=== PATIENT | male | born 1955 | race Two or more races ===

== ENCOUNTER 2024-04-09 11:34 | Outpatient (REF) | payer MEDICAID, SELFPAY ==
[2024-04-09 13:18] LABS: Erythrocyte Sedimentation Rate 7 MM/HR (0-15)
[2024-04-09 13:35] LABS: Vitamin B12 736 pg/mL (200-900)
--- OUTSIDE RECORDS SUMMARY | 2024-04-09 15:37 | XMS_ITS ---
Author Organization [facility] Address [address] [place] [address] [phone] Care Team Providers Care Anthropology Instructor Name Role Phone No, PCP Primary Care Provider Kevin Ratliff [phone] Encounters Encounter Location Date Provider Diagnosis [facility] [address] [place] [address] [id number] 10/12/2022 Kevin Hernandez Plan Of Treatment No Information Progress Notes * Evangelist WHALEY MDOB: 1955 (67 yo M)Acc No.[id number]:10/12/2022 Patient:?Phoenix Whaley :1955???Age:67 Y???Sex:Male Address:[address] [address] * true * Date:? Generated for aPolo monteiro/Chapin/eTransmitting on:?04/09/2024 03:37 PM EST
--- OUTSIDE RECORDS SUMMARY | 2024-04-09 15:37 | XMS_ITS | Clinical Summary ---
[facility] Address [address] [place] [address] Care Team Providers Care Payroll Administrative Assistant Name Role Phone Unavailable Primary Care Provider Unavailabl e Social History Tobacco Use Types Packs/Day Years Used Date Smoking Tobacco: Never Assessed Sex and Gender Information Value Date Recorded Sex Assigned at Not on file Gender Identity Not on file Sexual Orientation Not on file Plan of Treatment Health Maintenance Due Date Last Done Comments Zoster Vaccines (1 of 2) 2004 Pneumococcal Vaccine: 65+ Ye ars (1 of 1 - PCV) 07/11/2019 COVID-19 Vaccine ( - 2023-2 5 season) 2023 Influenza Vaccine (#1) 2023 Abdominal Aortic Aneurysm (A AA) Screen 02/04/2024 Cholesterol Screening (Lipid Panel) 02/04/2024 Colorectal Cancer Screening: Colonoscopy 02/04/2024 Depression Screening 02/04/2024 Falls Risk Assessment 02/04/2024 Hepatitis C Screening 02/04/2024 Social Influencers of Health Screening 02/04/2024 DTaP,Tdap,and Td Vaccines (2 - Td or Tdap) 08/04/2025 08/05/2015 RSV Immunization Patients 60 + Years Old (1 - 1-dose 75+ series) 2029 HIB Vaccines Aged Out No longer eligi ble based on patient's age to complete this topic HPV Vaccines Aged Out No longer eligi ble based on patient's age to complete this topic Hepatitis A Vaccines Aged Out No long er eligible based on patient's age to complete this topic Hepatitis B Vaccines Aged Out No long er eligible based on patient's age to complete this topic IPV Vaccines Aged Out No longer eligi ble based on patient's age to complete this topic MMR Vaccines Aged Out No longer eligi ble based on patient's age to complete this topic Meningococcal ACWY Vaccine Aged Out N o longer eligible based on patient's age to complete this topic RSV Immunization Patients Un brynn 20 months Aged Out No longer eligible b ased on patient's age to complete this topic Varicella Vaccines Aged Out No longer eligible based on patient's age to complete this topic
--- OUTSIDE RECORDS SUMMARY | 2024-04-09 15:37 | XMS_ITS ---
Author Organization [facility] Address [address] [place] [address] [phone] Care Team Providers Care Manager Food Safety Name Role Phone No, PCP Primary Care Provider Kevin Ratliff [phone] Encounters Encounter Location Date Provider Diagnosis [facility] [address] [place] [address] [phone] 10/12/2022 Kevin Hernandez Plan Of Treatment No Information Progress Notes * Evangelist WHALEY MDOB: 1955 (67 yo M)Acc No.[id number]:10/12/2022 Patient:?Phoenix Whaley :1955???Age:67 Y???Sex:Male Address:[address] [address] * true * Date:? Generated for Paolo monteiro/Chapin/eTransmitting on:?04/09/2024 03:37 PM EST
--- OUTSIDE RECORDS SUMMARY | 2024-04-09 15:38 | XMS_ITS ---
Author Organization [facility] Address [address] [place] [address] [phone] Care Team Providers Care Slab Conditioner Supervisor Name Role Phone No, PCP Primary Care Provider Kevin Ratliff [phone] Encounters Encounter Location Date Provider Diagnosis [facility] [address] [place] [address] [id number] 10/12/2022 Kevin Hernandez Plan Of Treatment No Information Progress Notes * Evangelist WHALEY MDOB: 1955 (67 yo M)Acc No.[id number]:10/12/2022 Patient:?Phoenix Whaley :1955???Age:67 Y???Sex:Male Address:[address] [address] * true * Date:? Generated for Paolo monteiro/Chapin/eTransmitting on:?04/09/2024 03:37 PM EST
--- OUTSIDE RECORDS SUMMARY | 2024-04-09 15:38 | XMS_ITS | Patient Health Record ---
Author Organization [facility] Address [address] [facility] [place] [address] Care Team Providers Care Ingot Car Operator Name Role Phone Sonja PADILLA, [place] Primary Care Provider Nancy Mcintosh Unavailable [phone] Allergies No Known Allergies Reason For Referral No Information Medications Medication SIG (Take, Route, Frequency, Duration) Notes Start Date End Date Status Cetirizine HCl 10 MG 1 tablet Orally Onc e a day Active Fluticasone Propionate nasal spray Active Irbesartan 300 MG 1 tablet Orally Once a day Active buPROPion HCl ER (XL) 150 MG 1 tablet in the morning Orally Once a day Active Cyclobenzaprine HCl 10 MG 1 tablet at be dtime Orally Once a day Active amLODIPine Besylate 10 MG 1 tablet Orall y Once a day Active buPROPion HCl ER (XL) 300 MG 1 tablet in the morning Orally Once a day Active Social History Tobacco Use: Social History Observation Description Date Details (start date - stop date) Former Smoker NA - NA Tobacco Use/Smoking Question Answer Notes Are you a: former smoker Alcohol Screen Question Answer Notes Did you have a drink containing alcohol in the p ast year? No Points 0 Interpretation Negative Tobacco use other than smoking: Question Answer Notes Are you an other tobacco user? No Problems Problem Type SNOMED Code ICD Code Onset Dates Problem Status W/U Status Risk Notes Problem Acquired hammer toe of right foot (9275654098626 105) Other hammer toe(s) (acquired), right foot (M20.41) Active confirmed Problem Acquired hammer toe of left foot (2845917894299 103) Other hammer toe(s) (acquired), left foot (M20.42) Active confirmed Plan Of Treatment Pending Test Test Name Order Date X ray : Foot, left 3V 10/10/2021 X ray : Foot, right 3V 10/03/2022 X ray : Foot, right 3V 10/10/2021 Insurance Providers Payer Name Payer Address Payer Phone Subscriber Number Group Number Insured Name Patient Relationship to Insured Coverage Start Date Coverage End Date [facility] [employer] Claims [address] [place] [phone] [id number] Evangelist Chamberlain Self - patient is the insured Medical (General) History Medical History History ICD Code Anxiety Back,Hip,and Knee pain Chicken pox Depression High blood pressure Joint implants/screws brain tumor Surgical History Surgery Date(Month/Year) knee surgery 80's back surgery, fusion 90's lap band 2014 Hospitalization History Reason Date(Month/Year)
--- OUTSIDE RECORDS SUMMARY | 2024-04-09 15:38 | XMS_ITS ---
Author Organization [facility] Address [address] [place] [address] Care Team Providers Care Math Interventionist Name Role Phone Sonja BLOWER ROOM ATTENDANT, [place] Primary Care Provider Unava ilNancy Sevilla [phone] REASON FOR VISIT Surgery Encounters Encounter Location Date Provider Diagnosis [facility] [address] [place] [address] 10/09/2022 Nancy Bedoya Plan Of Treatment No Information Progress Notes * Evangelist CHAMBERLAIN MDOB:1955 (67 yo M)Acc No.[id number]:10/09/2022 Patient:?Evangelist Chamberlain :1955???Age:67 Y???Sex:Male Address:[address] [place] [address] Vázquez [place] Váz[place], [address] * true * Date:? Generated for Tinoi cayetano/Chapin/eTransmitting on:?04/09/2024 03:37 PM EST
--- OUTSIDE RECORDS SUMMARY | 2024-04-09 15:38 | XMS_ITS ---
Author Organization [facility] Address [address] [place] [address] Care Team Providers Care Dry Kiln Operator Helper Name Role Phone Odette Reardon PA-C Primary Care Provider [id number] SMBP Program Status:Enrolled (Active) Start date:09/16/2023 Enrollment date:09/16/2023 Case Team Name Relationship Phone Joslyn Lofton LPN (Responsible Staff) [phone] Continued Care and Services Coordination
--- OUTSIDE RECORDS SUMMARY | 2024-04-09 15:38 | XMS_ITS | Clinical Summary ---
Author Organization [facility] Address [address] [place] [address] Care Team Providers Care Errand Runner Name Role Phone Odette Reardon PA-C Primary Care Provider Source Comments PLEASE NOTE, if this patient is a minor, it may be UNLAWFUL to discuss sensitive information that is contained in these records (such as FAMILY PLANNING, MENTAL HEALTH or SUBSTANCE ABUSE) with the minor patient's parent or other person without the patient's specific authorization.[facility] Allergies No known active allergies Medications sildenafiL (VIAGRA) 100 mg tablet TAKE ONE TABLET BY MOUTH ONE HOUR BEFORE SEXUAL ACTIVITY 2 Active cabergoline (DOSTINEX) 0.5 mg tablet 3 Active naproxen (NAPROSYN) 500 mg tabletIndication s:Chronic midline low back pain without sciatica Take 1 Tablet by mouth 2 (two) times daily with a meal 60 Tablet 3 Active montelukast (SINGULAIR) 10 mg tabletIndication s:Seasonal allergies Take 1 Tablet by mouth every evening Take 10 mg by mouth every evening 90 Tablet 1 4 Active fluticasone (FLONASE) 50 mcg/actuation nasal sprayIndications :Seasonal allergies Place 1 Mindoro in both nostrils once daily 16 g 2 4 Active cetirizine (ZYRTEC) 10 mg tabletIndication s:Anxiety Take 1 Tablet by mouth daily daily 90 Tablet 4 Active acetaminophen (TYLENOL) 500 mg tabletIndication s:Chronic midline low back pain without sciatica Take 2 Tablets by mouth every 6 (six) hours as needed for pain 120 Tablet 4 Active irbesartan (AVAPRO) 300 mg tabletIndication s:Hypertension, unspecified type Take 1 Tablet by mouth once daily 90 Tablet 1 4 Active atorvastatin (LIPITOR) 10 mg tabletIndication s:Hypertension, unspecified type,Elevated LDL cholesterol level Take 1 Tablet by mouth nightly at bedtime 90 Tablet 1 4 Active amLODIPine (NORVASC) 10 mg tabletIndication s:Hypertension, unspecified type Take 1 Tablet by mouth daily for 180 days 90 Tablet 1 4 Active buPROPion HCL (WELLBUTRIN XL) 300 mg 24 hr tabletIndication s:Hypertension, unspecified type,Anxiety Take 1 Tablet by mouth every morning 90 Tablet 4 Active Active Problems Problem Noted Date Diagnosed Date 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 Prolactinoma ([facility]) 04/22/2023 Elevated LDL cholesterol level 02/27/2023 Hypertension 02/14/2022 Prediabetes 02/14/2022 Erectile dysfunction 02/14/2022 Anxiety 02/14/2022 Immunizations Name Administration Dates Next Due Flu, High Dose, 65y+, Fluzon e High Dose 02/13/2023,12/31/2020 Flu, Preservative Free 12/05/2015 INFLUENZA, SEASONAL, INJECTABLE 01/09/20,03/14/2018,01/17/2017,01/08,01/29/2016,06/09/2015,03/24/2013 ,03/13/2012,01/18/2011,01/31/2010,12/10 Influenza, Whole 10/21/2018 PNEUMOCOCCAL POLYSACCHARIDE PPV23 03/29/2017 TDAP 04/06/2011 ZOSTER VACCINE, RECOMBINANT (SHINGRIX) 3,07/04/2017 Family History Medical History Relation Name Comments Drug Abuse Brother No Known Problems Father Heart attack Mother respiratory shock Sister Relation Name Status Comments Brother Father Mother Sister Social History Tobacco Use Types Packs/Day Years Used Date Smoking Tobacco: Never Smokeless Tobacco: Never Tobacco Cessation:Counseling Given: Yes Alcohol Use Standard Drinks/Week Comments Never 0 (1 standard drink = 0.6 oz pur e alcohol) Social Connections Answer Date Recorded Connectedness 0 11/14/2023 Financial Resource Strain Answer Date R ecorded Financial Resource Strain 0 2022 Stress Answer Date Recorded Stress 0 02/14/2022 Physical Activity Answer Date Recorded Physical Activity 0 02/14/2022 Food Insecurity Answer Date Recorded Food 0 01/25/2023 Transportation Needs Answer Date Record ed Transportation 0 01/25/2023 Housing Stability Answer Date Recorded Housing 0 01/25/2023 Safety and Environment Answer Date Theodore rded Safety 0 02/14/2022 Utilities Answer Date Recorded Utilities 0 01/25/2023 Employment Answer Date Recorded Employment 0 02/14/2022 Sex and Gender Information Value Date Recorded Sex Assigned at Male 02/14/2022 10:03 AM PST Legal Sex Male 8:38 AM PDT Gender Identity Male 02/14/2022 10:03 AM PST Sexual Orientation Straight 02/14/2022 10 :03 AM PST Last Filed Vital Signs Vital Sign Reading Time Taken Comments Blood Pressure 142/80 10/04/2023 9:06 AM EDT Pulse 94 10/04/2023 9:06 AM EDT Temperature 36.6 ??C (97.9 ??F) 08/23/2023 9:23 AM ED T Respiratory Rate 16 08/23/2023 9:23 AM EDT Oxygen Saturation 96% 01/25/2023 9:47 AM EST Inhaled Oxygen Concentration - - Weight 105.2 kg (232 lb) 08/23/2023 9:23 AM EDT Height 170.2 cm (5' 7 ) 08/23/2023 9:23 AM EDT Body Mass Index 36.34 08/23/2023 9:23 AM EDT Plan of Treatment Health Maintenance Due Date Last Done Comments Medicare Annual Wellness Visit [address] Colonography 07/11/1999 Colonoscopy 07/11/1999 Colorectal Cancer Screening 07/11/1999 FIT/gFOBT 07/11/1999 Fecal DNA 07/11/1999 Flexible Sigmoidoscopy 07/11/1999 Imm-Pneumococcal 65+ (2 of 2 - PCV) 03/29/2018 03/29/2017 Imm-DTaP/Tdap/Td (2 - Td or Tdap) 04/06/2021 012 Mia-SXXUM-24 ( season) 2023 10/29/2021, 08/05/2020, 07/08/2020 Imm-Influenza (#1) 2023 02/13/2023, 1 , 12/31/2020, Additional history exists Lipid Screening 01/26/2024 01/25/2023 Alcohol and Drug Screen 03/11/2024 04/22/19 24, 01/25/2023, 02/14/2022 Depression Annual Screen 03/11/2024 04/22/2023 Diabetes Screening 08/22/2024 08/23/2023, 0 08/23/2023, 01/25/2023, Additional history exists Falls Prevention 08/22/2024 08/23/2023 Tobacco Screening 09/14/2024 09/15/2023 Hepatitis C Screening Completed 01/25/2023 Imm-Zoster, Recombinant Completed 02/13/2023, 07/04 Goals Goal Patient Goal Type Associated Problems Recent Progress Patient-Stated? Author Blood Pressure < 130/80 Blood Pressure 142/80( 024 9:06 AM EDT) No Joslyn Lofton LPN Hypertension: Decrease sodium intake General No Joslyn Lofton LPN Procedures Procedure Name Priority Date/Time Associated Diagnosis Comments COMPREHENSIVE METABOLIC PANEL Routine 08/23/2023 9:56 AM EDT Hypertension, unspecified type Prediabetes HEPATITIS C AB W/RFLX HCV RNA, QT, RT PCR Routine 01/25/2023 10:22 AM EST Hypertension, unspecified type LIPID PANEL Routine 01/25/2023 10:22 AM EST from Last 3 Months or Most Recently Relevant to Health Maintenance Results * COMPREHENSIVE METABOLIC PANEL (08/23/2023 9:56 AM EDT) GLUCOSE 91 65 - 139 mg/dL [facility] Comment: ?Non-fasting reference interval UREA NITROGEN (BUN) 10 7 - 25 mg/dL [facility] CREATININE (blood) 1.00 0.70 - 1.35 mg/dL [facility] EGFR 81 > OR = 60 mL/min/1. 73m2 [facility] BUN/CREATININE RATIO SEE NOTE: [facility] Comment: ?? Not Reported: BUN and Creatinine are within ?? reference range. ? SODIUM 138 135 - 146 mmol/L [facility] POTASSIUM 4.5 3.5 - 5.3 mmol/L [facility] [place] [employer] CHLORIDE 101 98 - 110 mmol/L [facility] CARBON DIOXIDE 28 20 - 32 mmol/L [facility] CALCIUM 9.4 8.6 - 10.3 mg/dL [facility] PROTEIN, TOTAL 7.2 6.1 - 8.1 g/dL [facility] ALBUMIN 4.1 3.6 - 5.1 g/dL [facility] [place] [employer] GLOBULIN 3.1 1.9 - 3.7 g/dL (calc) [facility] ALBUMIN/GLOBULI N RATIO 1.3 1.0 - 2.5 (calc) [facility] [place] [employer] BILIRUBIN, TOTAL 0.5 0.2 - 1.2 mg/dL [facility] ALKALINE PHOSPHATASE 99 35 - 144 U/L [facility] AST 21 10 - 35 U/L [facility] ALT 21 9 - 46 U/L [facility] Blood Blood / Unknown 08/23/2023 9 :56 AM EDT 08/23/2023 9:56 AM EDT Narrative [employer] [facility] - 08/24/2023 8:52 AM EDT FASTING:NO Odette Reardon PA-C LAB - BLOOD DRAW Edited Resu lt - Final [facility] [address] [address], [facility] [address] [address] * HEPATITIS C AB W/RFLX HCV RNA, QT, RT PCR (01/25/2023 10:22 AM EST) HEPATITIS C ANTIBODY NON-REACT LALI NON-REACT LALI [facility] Comment: HCV antibody was non-reactive. There is no laboratory evidence of HCV infection. In most cases, no further action is required. However, if recent HCV exposure is suspected, a test for HCV RNA (test code 01867) is suggested. For additional information please refer to http://education.[employer])/faq/VKM69w8 (This link is being provided for informational/ educational purposes only.) Blood Blood / Unknown 01/25/2023 1 0:22 AM EST 01/25/2023 10:23 AM EST Odette LOVE-C LAB - BLOOD DRAW Edited Resu lt - Final [facility] [address] [address], [facility] [address] [address] * (ABNORMAL) LIPID PANEL (01/25/2023 10:22 AM EST) CHOLESTEROL, TOTAL 195 <200 mg/dL [facility] HDL CHOLESTEROL 56 > OR = 40 mg/dL [facility] TRIGLYCERIDES 72 <150 mg/dL [facility] LDL-CHOLESTEROL 123(H) 99 mg/dL (calc) [facility] Comment: Reference range: <100 Desirable range <100 mg/dL for primary prevention; ?? <70 mg/dL for patients with CHD or diabetic patients with > or = 2 CHD risk factors. LDL-C is now calculated using the Vishal-Faria calculation, which is a validated novel method providing better accuracy than the Friedewald equation in the estimation of LDL-C. Vishal SS et al. REN. 2013;310(19): 8859-5514 (http://education.[employer]/faq/SNI731) CHOL/HDLC RATIO 3.5 <5.0 (calc) [facility] NON-HDL CHOLESTEROL 139(H) <130 mg/dL (calc) [employer] [facility] Comment: For patients with diabetes plus 1 major ASCVD risk factor, treating to a non-HDL-C goal of <100 mg/dL (LDL-C of <70 mg/dL) is considered a therapeutic option. 01/25/2023 10:2 2 AM EST 01/25/2023 10:23 AM EST Odette LOVE-C LAB - BLOOD DRAW Final Resul t Performing Organization Address City/[facility]/ZIP Co de Phone Number [facility] [address] [address], [facility] [address] [place] [address] from Last 3 Months or Most Recently Relevant to Health Maintenance Insurance [facility] Member Subscriber Plan / Payer (Ef fective 2018-Present) Name:Evangelist Chamberlain Relation to Subscriber:Self Name:Evangelist Chamberlain Payer ID:[id number] Group ID:Not on file Type:Indemniirlanda Address: [place] [address] [place] [address] Care Teams Errand Runner Relationship Specialty Start Date End Date Odette Reardon PA-C [address] [place] [address] PCP - General Internal Medicine 12/07/21
--- OUTSIDE RECORDS SUMMARY | 2024-04-09 15:38 | XMS_ITS | Patient Health Record ---
Author Organization [facility] Address [address] [place] [phone] Care Team Providers Care Title Insurance Sales Representative Name Role Phone No, PCP Primary Care Provider Kevin Ratliff [phone] Reason For Referral No Information Plan Of Treatment No Information Insurance Providers Payer Name Payer Address Payer Phone Subscriber Number Group Number Insured Name Patient Relationship to Insured Coverage Start Date Coverage End Date [place] Medicaid Standard [address] [place] [address] [id number] Evangelist Pitts Self - patient is the insured 2 2
[2024-04-10 12:09] LABS: Lyme Abs Screen <0.90 index
[2024-04-14 13:10] LABS: IgA 241 mg/dL (70-320); IgG 1540 mg/dL (600-1540); IgM 47 mg/dL (50-300)
== END 2024-04-09 11:35 | disposition home or self-care (01) ==
LOC: HO.LAB 11:34
PROVIDERS: Visit Provider Psychiatry & Neurology Neurology
DX: G12.21 Amyotrophic lateral sclerosis (principal)
CPT/HCPCS: 36415; 82550; 82607; 82784; 85652; 86334; 86617; 86618

== ENCOUNTER 2024-06-29 10:35 | Outpatient (REF) | payer MEDICARE, MEDICAID, SELFPAY ==
--- OUTSIDE RECORDS SUMMARY | 2024-06-29 10:41 | XMS_ITS | Patient Health Record ---
Author Organization [facility] Address [address] [place] [phone] Care Team Providers Care Documentation Spec Name Role Phone No, PCP Primary Care Provider Kevin Ratliff [phone] Reason For Referral No Information Plan Of Treatment No Information Insurance Providers Payer Name Payer Address Payer Phone Subscriber Number Group Number Insured Name Patient Relationship to Insured Coverage Start Date Coverage End Date [place] [address] [place] [address] [id number] Evangelist Pitts Self - patient is the insured 2 2
[2024-06-29 11:34] LABS: Alanine Aminotransferase 25 U/L (0-40); Albumin Level 3.8 g/dL (3.5-5.0); Alkaline Phosphatase 87 U/L (39-117); Aspartate Amino Transferase 33 U/L (5-37); Bilirubin Direct 0.2 mg/dL (0.0-0.5); Bilirubin Total 0.5 mg/dL (0.0-1.0); Total Protein 6.7 g/dL (6.5-8.0)
== END 2024-06-29 10:36 | disposition home or self-care (01) ==
LOC: HO.LAB 10:35
PROVIDERS: PCP Nurse Practitioner Family; Visit Provider Psychiatry & Neurology Neurology
DX: G12.21 Amyotrophic lateral sclerosis (principal)
CPT/HCPCS: 36415; 80076